=== PATIENT | female | born 1960 | race Caucasian/White ===

== ENCOUNTER 2022-03-16 15:25 | Inpatient (IN) | payer MEDICAID ==
[2022-03-16] MEDS ORDERED: Sodium Chloride 0.9% 10 ML Syringe FLUSH PRN (15:56)
[2022-03-16] MEDS ORDERED: Sodium Chloride 0.9% 2.5 ML Syringe FLUSH PRN (15:56)
[2022-03-16] MEDS ORDERED: Ondansetron 4 MG/2 ML SDV IVPUSH PRN (15:56)
[2022-03-16] MEDS ORDERED: Acetaminophen 325 MG Tab PO PRN (15:56)
[2022-03-16] MEDS ORDERED: Docusate Sodium 100 MG Cap PO PRN (15:56)
[2022-03-16] MEDS: Furosemide 40 MG/4 ML VIAL IVPUSH SCH (17:08)
[2022-03-16 17:54] LABS: BLOOD UREA NITROGEN,BUN 15 mg/dL (7.0-18.0); CARBON DIOXIDE,CO2 25.9 mmol/L (21.0-32.0); CHLORIDE,CL 102 mmol/L (98-107); GLUCOSE RANDOM 104 mg/dL (74-106); POTASSIUM,K 4.2 mmol/L (3.5-5.1); SODIUM,NA 140 mmol/L (136-145)
[2022-03-16] MEDS: Folic Acid 1 MG Tab PO SCH (20:54)
[2022-03-16] MEDS: Thiamine 100 MG Tab PO SCH (20:57)
[2022-03-16] MEDS ORDERED: Enoxaparin 40 MG/0.4 ML Syringe SUBCUT SCH (21:00)
[2022-03-16] MEDS: ALPRAZolam 0.25 MG Tab PO PRN (22:18)
[2022-03-17 07:03] LABS: HEMOGLOBIN A1C 6.1 %
[2022-03-17 07:06] LABS: BLOOD UREA NITROGEN,BUN 16 mg/dL (7.0-18.0); CARBON DIOXIDE,CO2 27.5 mmol/L (21.0-32.0); CHLORIDE,CL 104 mmol/L (98-107); GLUCOSE RANDOM 98 mg/dL (74-106); POTASSIUM,K 3.5 mmol/L (3.5-5.1); SODIUM,NA 140 mmol/L (136-145)
[2022-03-17] MEDS ORDERED: Potassium Chloride 20 MEQ Tab.ER PO ONE (08:25)
[2022-03-17] MEDS ORDERED: Lisinopril 10 MG Tab PO SCH (09:00)
[2022-03-17] MEDS: Empagliflozin 10 MG Tab PO SCH (09:09)
[2022-03-17] MEDS: Furosemide 40 MG/4 ML VIAL IVPUSH SCH ×2 (09:10→14:59)
[2022-03-17] MEDS: Enoxaparin 40 MG/0.4 ML Syringe SUBCUT SCH ×2 (12:10→12:52)
[2022-03-17] MEDS: Folic Acid 1 MG Tab PO SCH (21:47)
[2022-03-17] MEDS: ALPRAZolam 0.25 MG Tab PO PRN (21:47)
[2022-03-17] MEDS: Thiamine 100 MG Tab PO SCH (21:48)
[2022-03-17] MEDS: Spironolactone 25 MG Tab PO SCH (21:48)
[2022-03-18 07:19] LABS: BLOOD UREA NITROGEN,BUN 14 mg/dL (7.0-18.0); CARBON DIOXIDE,CO2 25.5 mmol/L (21.0-32.0); CHLORIDE,CL 102 mmol/L (98-107); GLUCOSE RANDOM 95 mg/dL (74-106); POTASSIUM,K 4.1 mmol/L (3.5-5.1); SODIUM,NA 139 mmol/L (136-145)
[2022-03-18] MEDS: Empagliflozin 10 MG Tab PO SCH (08:56)
[2022-03-18] MEDS: Spironolactone 25 MG Tab PO SCH (08:56)
[2022-03-18] MEDS: Furosemide 40 MG/4 ML VIAL IVPUSH SCH ×2 (08:58→15:34)
[2022-03-18] MEDS: Enoxaparin 40 MG/0.4 ML Syringe SUBCUT SCH (08:59)
[2022-03-18] MEDS: Lisinopril 10 MG Tab PO SCH (09:05)
[2022-03-18] MEDS: Thiamine 100 MG Tab PO SCH (20:56)
[2022-03-18] MEDS: Carvedilol 3.125 MG Tab PO SCH (20:56)
[2022-03-18] MEDS: Folic Acid 1 MG Tab PO SCH (20:56)
[2022-03-18] MEDS: ALPRAZolam 0.25 MG Tab PO PRN (20:57)
[2022-03-19 07:22] LABS: BLOOD UREA NITROGEN,BUN 17 mg/dL (7.0-18.0); CARBON DIOXIDE,CO2 28.2 mmol/L (21.0-32.0); CHLORIDE,CL 100 mmol/L (98-107); GLUCOSE RANDOM 95 mg/dL (74-106); POTASSIUM,K 3.7 mmol/L (3.5-5.1); SODIUM,NA 137 mmol/L (136-145)
[2022-03-19] MEDS: Carvedilol 3.125 MG Tab PO SCH (08:13)
[2022-03-19] MEDS: Lisinopril 10 MG Tab PO SCH (08:13)
[2022-03-19] MEDS: Empagliflozin 10 MG Tab PO SCH (08:14)
[2022-03-19] MEDS: Spironolactone 25 MG Tab PO SCH (08:14)
[2022-03-19] MEDS: Enoxaparin 40 MG/0.4 ML Syringe SUBCUT SCH (08:19)
[2022-03-19] MEDS ORDERED: Lisinopril 10 MG Tab PO ONE (08:31)
[2022-03-19] MEDS: Furosemide 40 MG/4 ML VIAL IVPUSH SCH (08:31)
[2022-03-20] MEDS ORDERED: Furosemide 40 MG Tab PO SCH (09:00)
[2022-03-20] MEDS ORDERED: Lisinopril 10 MG Tab PO SCH ×2 (09:00)
== END 2022-03-19 14:10 | disposition home or self-care (01) | DRG 291 ==
LOC: MW.MS 15:25
PROVIDERS: ADMIT Internal Medicine; ATTEND Internal Medicine
DX: I11.0 Hypertensive heart disease with heart failure (principal); I50.21 Acute systolic (congestive) heart failure; F10.10 Alcohol abuse, uncomplicated; F41.9 Anxiety disorder, unspecified; Z86.16 Personal history of COVID-19; R74.01 Elevation of levels of liver transaminase levels; F17.200 Nicotine dependence, unspecified, uncomplicated; Z20.822 Contact with and (suspected) exposure to COVID-19; F32.89 Other specified depressive episodes; Z91.013 Allergy to seafood; Z88.6 Allergy status to analgesic agent
CPT/HCPCS: 36415; 80048; 80053; 80061; 83036; 83735; 83880; 84443; 84484; 85025; 93005; A9270-GY; J1650; J1940; U0002